=== PATIENT | female | born 1960 | race Caucasian/White ===

== ENCOUNTER 2021-05-13 09:28 | Emergency (ER) | payer OTHER ==
[2021-05-13] MEDS: Ketorolac 30 MG/ML SDV IM ONE (09:58)
--- NOTE | 2021-05-13 09:59 | EDM.PDOC ---
[facility] GENERAL MEDICAL PROBLEM - General Chief Complaint: Upper Extremity Injury/Pain Stated Complaint: right shoulder pain after fall Time Seen by Provider: 05/13/21 09:45 Source of Information: Reports: Patient History Limitations: Reports: No Limitations - History of Present Illness INITIAL COMMENTS - FREE TEXT/NARRATIVE: Patient comes into the emergency department complaints of a right shoulder injury. Patient was completing rounds on the medical unit and states that she turned to leave the patient's room and ended up tripping over an oxygenation cord that she did not see on the floor. She states that she fell landing on her knees first and falling onto her right shoulder. She states that she was able to get up on her own without any difficulty denies hitting her head or losing consciousness. She states that she noticed the pain and discomfort on a pushing sensation with her right shoulder immediately. She also noted an abrasion to the right knee. Patient states that she has not had any major significant injuries to that right shoulder before requiring surgery. Patient states that she is able to move that right shoulder however it is limited due to the extensive amount of pain. Patient denies any CMS concerns. Onset: Sudden Location: Reports: Upper Extremity, Right Quality: Reports: Throbbing Severity: Moderate Improves with: Reports: Rest Worsens with: Reports: Movement Context: Reports: Trauma Associated Symptoms: Reports: No Other Symptoms Review of Systems - Review of Systems Review Of Systems: Comprehensive ROS is negative, except as noted in HPI. Constitutional: Reports: No Symptoms Eyes: Reports: No Symptoms Ears: Reports: No Symptoms Nose: Reports: No Symptoms Mouth/Throat: Reports: No Symptoms Respiratory: Reports: No Symptoms Cardiovascular: Reports: No Symptoms GI/Abdominal: Reports: No Symptoms Genitourinary: Reports: No Symptoms Musculoskeletal: Reports: No Symptoms Skin: Reports: No Symptoms Neurological: Reports: No Symptoms Psychiatric: Reports: No Symptoms ED EXAM, GENERAL - Physical Exam Exam: See Below Exam Limited By: No Limitations General Appearance: Alert, WD/WN, No Apparent Distress Nose: Normal Inspection, Normal Mucosa Throat/Mouth: Normal Inspection, Normal Lips, Normal Oropharynx, Normal Voice, No Airway Compromise Head: Atraumatic, Normocephalic Neck: Normal Inspection, Supple, Non-Tender, Full Range of Motion Respiratory/Chest: No Respiratory Distress, Lungs Clear, Normal Breath Sounds, No Accessory Muscle Use, Chest Non-Tender Cardiovascular: Normal Peripheral Pulses, Regular Rate, Rhythm, No Edema, No JVD Back Exam: Normal Inspection, Full Range of Motion, NT Extremities: Normal Inspection, No Pedal Edema, Normal Capillary Refill, Limited Range of Motion (right shoulder- limited extension and external rotation. CMS intact. muscle tissue swelling noted mid upper right back. Tenderness with palpation ) Neurological: Alert, Oriented, CN II-XII Intact, Normal Cognition, Normal Gait Psychiatric: Normal Affect, Normal Mood Skin Exam: Warm, Dry, Intact, Normal Color, No Rash, Other (pea size abrasion to right knee noted. ROM and CMS intact. No swelling, redness, deformity or bleeding noted) Lymphatic: No Adenopathy Course - Orders/Labs/Meds Orders: Active Orders 24 hr Category Date Time Status Shoulder Comp Rt [CR] Stat Exams 05/13/21 09:52 Ordered Meds: Medications Discontinued Medications Generic Name Dose Route Start Last Admin Trade Name Freq PRN Reason Stop Dose Admin Ketorolac Tromethamine 30 mg 05/13/21 09:51 Ketorolac 30 Mg/Ml Sdv IM 05/13/21 09:52 ONETIME ONE Departure - Departure Time of Disposition: 10:45 Disposition: Home, Self-Care 01 Condition: Good Clinical Impression: Right shoulder pain Qualifiers: Chronicity: acute Qualified Code(s): M25.511 - Pain in right shoulder Right shoulder strain Qualifiers: Encounter type: initial encounter Qualified Code(s): S46.911A - Strain of unspecified muscle, fascia and tendon at shoulder and upper arm level, right arm, initial encounter Rotator cuff injury Qualifiers: Encounter type: initial encounter Laterality: right Qualified Code(s): S46.001A - Unspecified injury of muscle(s) and tendon(s) of the rotator cuff of right shoulder, initial encounter - Discharge Information *PRESCRIPTION DRUG MONITORING PROGRAM REVIEWED*: Not Applicable *COPY OF PRESCRIPTION DRUG MONITORING REPORT IN PATIENT [facility]LYNN: Not Applicable Instructions: Deltoid Disruption, Shoulder Pain, [id number] Referrals: Maria Guadalupe Roach PA-C [Primary Care Provider] - Forms: ED Department Discharge Additional Instructions: 1. Rest 2. wear splint for 5-7 days as needed to help with any pain or discomfort or until orthopedics clears you 3. Can use tylenol and ibuprofen as needed for pain and discomfort 4. Diet as tolerated 5. Activity as tolerated 6. Elevated the injured area above the level of the heart to decrease swelling and discomfort. 7. Use ice 3-4 times a day at 20-minute intervals to help with any swelling and discomfort 8. Follow-up with your primary care provider symptoms continue or to progress 9. Follow with any questions or concerns 10. Discharge information has been provided regarding your injury - My Orders Last 24 Hours: My Active Orders 05/13/21 09:52 Shoulder Comp Rt [CR] Stat - Assessment/Plan Last 24 Hours: My Active Orders 05/13/21 09:52 Shoulder Comp Rt [CR] Stat Assessment:: 1. Right shoulder injury 2. Right knee abrasion Plan: 1. X-ray completed in the emergency department results reviewed with the patient 2. Ice Applied to the affected limb 3. Medication offered to the patient- Toradol given 4. Education regarding splinting, activity, [id number] medications, and follow-up care provided. 5. All questions and concerns addressed with the patient prior to discharge 6. Shoulder immobilizer applied and patient is to follow up with Ortho within the week.
--- NOTE | 2021-05-15 09:16 | CR ---
[id number] RAD/RAD Shoulder Right 2V Min Exam: RAD Shoulder Right 2V Min Indication:FALL Comparison: No prior imaging for comparison. Discussion/Impression: Acromioclavicular and glenohumeral articulations remain in normal alignment. No fracture. No AVN or erosive changes. Mild acromioclavicular and glenohumeral osteoarthritis. Osseous spurring on the humeral head at the rotator cuff footprint. Borderline narrowing of the subacromial interval. Surgical clips project over the right axilla. Misha Poe MD 05/15/21 0916 Thank you for allowing us to participate in the care of your patient.
== END 2021-05-13 10:45 | disposition home or self-care (01) ==
LOC: VM.ED 09:28
DX: S46.911A Strain of unspecified muscle, fascia and tendon at shoulder and upper arm level, right arm, initial encounter (principal); W19.XXXA Unspecified fall, initial encounter
CPT/HCPCS: 73030; 96372; 99283; J1885